=== PATIENT | female | born 1980 | race African-American/Black ===

== ENCOUNTER 2017-06-14 05:15 | Day surgery (SDC) | payer OTHER ==
[2017-06-11 15:54] VITALS: BMI 28.3
[~2017-06-14 05:15] MED LIST: ceFAZolin SODIUM 1 GM VIAL IVPB ONE
[2017-06-14] MEDS ORDERED: MIDAZOLAM HCL 2 MG/2 ML SINGLE DOSE VIAL ONE ×2 (11:30→11:50)
[2017-06-14] MEDS ORDERED: ACETAMINOPHEN 325 MG TABLET (FP) PO PRN (11:42)
[2017-06-14] MEDS ORDERED: IBUPROFEN 800 MG/8 ML IJ IVPB PRN (11:42)
--- NOTE | 2017-06-14 11:42 | HP ---
History & Physical Update - History History: No Change - Physical Physical: No Change - Assessment Assessment: No Change - Plan Plan: No Change (missed - for suction D&C)
[2017-06-14] MEDS ORDERED: LACTATED RINGERS SOLUTION 1,000 ML IV SCH ×2 (11:45→12:15)
[2017-06-14] MEDS ORDERED: PROPOFOL 20 ML ONE (11:50)
[2017-06-14] MEDS ORDERED: DEXAMETHASONE SOD PHOSPHATE 4 MG/1 ML VIAL ONE (11:51)
[2017-06-14] MEDS ORDERED: KETOROLAC TROMETHAMINE 30 MG/1 ML VIAL ONE (11:51)
--- NOTE | 2017-06-14 12:10 | OP ---
Operative Note - Note: Operative Date: 06/14/17 Pre-Operative Diagnosis: missed at approx 7 weeks gestation Operation: suction D&C Findings: Normal female genitalia 7 week size uterus Post-Operative Diagnosis: Same as Pre-op Surgeon: Gloria Araiza Anesthesiologist/GAME PRESERVE MANAGER: Jarad Stearns Anesthesia: MAC Specimens Removed: products of conception Estimated Blood Loss (mls): 10 Operative Report Dictated: Yes
[2017-06-14] MEDS ORDERED: ONDANSETRON 4 MG/2 ML VIAL IVPUSH PRN (12:11)
[2017-06-14] MEDS ORDERED: PROMETHAZINE HCL 25 MG/1 ML VIAL IVPB PRN (12:11)
[2017-06-14] MEDS ORDERED: oxyCODONE HCL 5 MG TABLET PO PRN (12:11)
[2017-06-14 13:17] VITALS: TEMP 97.8
[2017-06-14 14:47] VITALS: BP 115/66; PULSE 77
--- NOTE | 2017-06-14 21:39 | OP ---
DATE OF OPERATION: 06/14/2017 PREOPERATIVE DIAGNOSIS: Missed at approximately 7 weeks' gestation. POSTOPERATIVE DIAGNOSIS: Missed at approximately 7 weeks' gestation. PROCEDURE: Suction dilatation and curettage. SURGEON: Gloria Araiza DO UPPER CUTTER OUT: None. ANESTHESIA: MAC anesthesia administered by Jarad Stearns MD. ESTIMATED BLOOD LOSS: 10 mL SPECIMENS REMOVED: Included products of conception. COMPLICATIONS: None. DISPOSITION: Stable to PACU. BRIEF HISTORY AND PROCEDURE: Patient is a 37-year-old female who was seen in the office and diagnosed with a missed by ultrasound showing no heart rate, measuring approximately 7 weeks' gestation. The patient was counseled on her options, and she elected to undergo a suction D&C procedure. The patient signed consents for the procedure upon admission on June 14, 2017. The patient and the surgeon were then mutually identified, and then, the patient was taken back to the operating room where she was given MAC anesthesia by Dr. Jarad Stearns. She was placed in the dorsal lithotomy position, prepped and draped in the usual sterile fashion, and then, a hard timeout was performed. A speculum was placed inside the vagina, and the anterior lip of the cervix was easily grasped with a single-tooth tenaculum. The cervix was dilated to accommodate a 7 curved suction curette which was advanced to the fundus. After approximately 3 passes of the suction curette in a 360-degree fashion, one pass in a 360-degree fashion with a sharp curette was completed until adequate uterine cry was obtained. Two final passes of the suction curette to remove all remaining intrauterine tissue were completed. Minimal bleeding was noted from the cervical os. Tenaculum sites were noted to be hemostatic. The patient tolerated the procedure well. Products of conception were sent to Pathology for permanent evaluation, and she was recovering in stable condition in the PACU at the time of this dictation. GLORIA ARAIZA DO /[id number]
--- NOTE | 2017-06-15 11:20 | PATH ---
Surgical Pathology Report Patient Name: KEVIN LANGLEY Med. Rec. #: [id number] /Age/Gender: 1980 (Age: 37) / F Account: [id number] Location: [facility] Taken: 06/14/2017 Received: 06/14/2017 Reported: 06/15/2017 Physicians: Beverly Lawrence M.D. Specimen(s) Received PRODUCTS OF CONCEPTION Clinical History Missed Final Diagnosis PRODUCTS OF CONCEPTION, SUCTION DILATATION AND CURETTAGE: IMMATURE CHORIONIC VILLI AND DECIDUA CONSISTENT WITH PRODUCTS OF CONCEPTION. Electronically Signed Lila Khan M.D. Gross Description Received in formalin labeled "products of conception," is a 7.0 x 5.0 x 0.8 cm aggregate of ybarra red soft tissue fragments. Villous tissue is identified. No definite somatic tissue is identified. A hvac sales representative portion is submitted in one cassette. /06/14/2017 saudi06/14/2017
== END 2017-06-14 14:40 | disposition home or self-care (01) ==
LOC: JASU-SURG 05:15
PROVIDERS: ATTEND Obstetrics & Gynecology
PROC: 10D17ZZ Extraction of Products of Conception, Retained, Via Natural or Artificial Opening (ICD-10-PCS; principal; 2017-06-14 17:00)
DX: O02.1 Missed abortion (principal); Z3A.01 Less than 8 weeks gestation of pregnancy
CPT/HCPCS: 88305-TC; 94760